=== PATIENT | male | born 1950 | race Caucasian/White ===

== ENCOUNTER 2018-11-09 07:19 | Day surgery (SDC) | payer OTHER | END 2018-11-09 09:05 | disposition home or self-care (01) | LOC: FASU-ENDO 07:19 ==

== ENCOUNTER 2024-08-07 07:25 | Day surgery (SDC) | payer OTHER ==
[2024-08-01 11:47] VITALS: BMI 25.2
[2024-08-07] MEDS ORDERED: LIDOCAINE 1%/EPI 1:100000 (20 ML MULTI DOSE VIAL) ONE (08:53)
[2024-08-07] MEDS ORDERED: ceFAZolin SODIUM 1 GM VIAL ONE ×2 (08:53→09:51)
[2024-08-07] MEDS ORDERED: POVIDONE-IODINE 5% OPHTHALMIC PREP 30 ML SOLUTION ONE (08:53)
[2024-08-07] MEDS ORDERED: BUPIVACAINE HCL/PF 0.5% (5MG/ML) 10 ML VIAL ONE (08:53)
[2024-08-07] MEDS ORDERED: ERYTHROMYCIN 0.5% OPHTHALMIC OINTMENT 3.5 GM TUBE ONE (08:53)
[2024-08-07] MEDS ORDERED: TETRACAINE 0.5% OPHTH SOLN 2 ML BOTTLE ONE (08:53)
[2024-08-07] MEDS ORDERED: MIDAZOLAM HCL 2 MG/2 ML SINGLE DOSE VIAL ONE (08:57)
[2024-08-07] MEDS ORDERED: DEXAMETHASONE SOD PHOSPHATE 4 MG/1 ML VIAL ONE (09:51)
[2024-08-07] MEDS ORDERED: ONDANSETRON 4 MG/2 ML VIAL ONE (09:51)
[2024-08-07] MEDS ORDERED: GLYCOPYRROLATE 0.2 MG/1 ML VIAL ONE (09:51)
[2024-08-07] MEDS ORDERED: PROPOFOL 20 ML ONE ×2 (09:56→10:21)
[2024-08-07 11:31] VITALS: PULSE 80; RESP 18; TEMP 97.2
[2024-08-07 12:12] VITALS: BP 135/66
== END 2024-08-07 12:15 | disposition home or self-care (01) ==
LOC: FASU 07:25
PROVIDERS: ATTEND Ophthalmology
PROC: 08SQ0ZZ Reposition Right Lower Eyelid, Open Approach (ICD-10-PCS; principal; 2024-08-07 09:49)
DX: H02.032 Senile entropion of right lower eyelid (principal)
CPT/HCPCS: 82962; 94760